=== PATIENT | male | born 1975 | race Caucasian/White ===

== ENCOUNTER 2019-05-11 21:51 | Emergency (ER) | payer MEDICARE ==
[~2019-05-11] VITALS: Ht 188 cm; Wt 111.1 kg
[2019-05-11] MEDS ORDERED: GABAPENTIN300 MG ORAL (22:18)
[2019-05-11] MEDS ORDERED: SEROQUEL100 MG ORAL (22:18)
[2019-05-11 22:20] VITALS: BP 116/79
--- NOTE | 2019-05-11 22:20 | NUR ---
ED Nurse Note: pt walked in c/o cough and headache for 2 days. noted intermittent dry cough, no sx resp distress, Resp even and unlabored on RA, will cont monitor.
--- NOTE | 2019-05-11 22:46 | Emergency Room Report ---
History of Present Illness General Chief Complaint: Upper Respiratory Illness Source: Patient Present Illness HPI Patient presents with complaints of cough and congestion over the past several days complains of increased phlegm production Patient also has history of smoking Denies any chest pain denies any vomiting denies any neck pain or photophobia Denies any recent travel Patient has had increased yellow production with phlegm Presents for further eval Allergies: Coded Allergies: No Known Allergies (Verified Allergy, Unknown, 12/30/10) Patient History Past Medical History: see triage record Reviewed Nursing Documentation: PMH: Agreed; PSxH: Agreed Nursing Documentation-PMH Past Medical History: No Stated History Review of Systems All Other Systems: negative except mentioned in HPI Physical Exam Vital Signs Date Time Temp Pulse Resp B/P (MAP) Pulse Ox O2 Delivery O2 Flow Rate FiO2 05/11/19 22:14 98.6 98 14 116/79 (91) 99 Room Air Sp02 EP Interpretation: reviewed, normal General Appearance: well appearing, no apparent distress Head: normocephalic, atraumatic Eyes: bilateral eye PERRL, bilateral eye EOMI ENT: hearing grossly normal, normal pharynx, TMs + canals normal, uvula midline Neck: full range of motion, supple, no meningismus, no bony tend Respiratory: no rhonchi, no respiratory distress, no retraction, no accessory muscle use, crackles - Bilaterally Cardiovascular #1: normal peripheral pulses, regular rate, rhythm, no edema, no gallop, no JVD, no murmur Gastrointestinal: normal bowel sounds, non tender, soft, no mass, no organomegaly, non-distended, no guarding, no hernia, no pulsatile mass, no rebound Genitourinary: no CVA tenderness Musculoskeletal: normal inspection Neurologic: oriented x3, responsive, cultural centre manager III-XII nml as tested, motor strength/ tone normal, sensory intact Psychiatric: mood/affect normal Skin: no rash Lymphatic: normal inspection, no adenopathy Medical Decision Making Diagnostic Impression: Primary Impression: Pneumonia ER Course Multiple differentials including but not limited to infectious, reactive, cardiac, cardiopulmonary disease entertained x-ray imaging does not show any obvious acute pathology Given the patient's clinical symptoms and presentation Community-acquired pneumonia is diagnosed and patient stable for close outpatient Trial Chest X-Ray Diagnostic Results Chest X-Ray Diagnostic Results : Chest X-Ray Ordered: Yes # of Views/Limited/Complete: 1 View Indication: Shortness of Breath EP Interpretation: Yes Interpretation: no consolidation, no effusion, no pneumothorax Impression: No acute disease Electronically Signed by: Julianna Crawford DO Last Vital Signs Date Time Temp Pulse Resp B/P (MAP) Pulse Ox O2 Delivery O2 Flow Rate FiO2 05/11/19 22:14 98.6 98 14 116/79 (91) 99 Room Air Disposition: HOME, SELF-CARE Condition: Improved Scripts Methylprednisolone (Methylprednisolone*) 4MG Dspk 4 MG ORAL DIRECTED for 6 Days, #21 EA 0 Refills Day 1: Two tablets before breakfast, one after lunch, one after dinner, and two at bedtime. If started late in the day, take all six tablets at once or divide into two or three doses, unless otherwise directed by prescriber. Day 2: One tablet before breakfast, one after lunch, one after dinner, and two at bedtime Day 3: One tablet before breakfast, one after lunch, one after dinner, and one at bedtime Day 4: One tablet before breakfast, one after lunch, and one at bedtime Day 5: One tablet before breakfast and one at bedtime Day 6: One tablet before breakfast Prov: Julianna Crawford DO 05/11/19 Albuterol Sulfate* (ALBUTEROL SULFATE MDI*) 8.5 Gm Hfa.aer.ad 2 PUFF INH Q6H, #1 EA 0 Refills Prov: Julianna Crawford DO 05/11/19 Azithromycin* (ZITHROMAX*) 250 Mg Tablet 250 MG ORAL DAILY, #6 TAB 0 Refills Take two tables once daily for 1 day, then one tablet once daily for 4 days. Prov: Julianna Crawford DO 05/11/19 Additional Instructions: Patient is provided with the discharge instructions notified to follow up with primary doctor in the next 2-3 days otherwise return to the er with any worsening symptoms. Please note that this report is being documented using [employer] technology. This can lead to erroneous entry secondary to incorrect interpretation by the dictating instrument. Julianna Crawford DO May 11, 2019 22:46
[2019-05-11] MEDS ORDERED: MEDROL DOSEPAK4 MG ORAL (23:30)
[2019-05-11] MEDS ORDERED: ALBUTEROL SULF8.5 GM INH (23:30)
[2019-05-11] MEDS ORDERED: ZITHROMAX250 MG ORAL (23:30)
[2019-05-11 23:51] VITALS: BP 112/70
--- NOTE | 2019-05-11 23:51 | NUR ---
ED Nurse Note: PT CLEARED TO BE D/C PER ERMD, PT DISCHARGE AND AFTERCARE INSTRUCTION PROVIDED W/ PRESCRIPTION, PT EDUCATION DONE VIA DISCUSSION AND HANDOUT, PT ADVISED TO FOLLOW UP WITH PCP OR RETURN TO ED IF CHANGES IN CONDITION, VSS, AMBULATORY W/ STEADY GAIT, LEFT W/ ALL BELONGINGS.
--- NOTE | 2019-05-12 12:24 | Diagnostic Imaging Report ---
Indication: Cough Technique: Single AP view of the chest. Comparison: Chest radiograph dated 12/30/2010 Findings: The cardiomediastinal silhouette is within normal limits. No airspace consolidation, pneumothorax or pleural effusion. Left basilar subsegmental atelectasis. Osseous structures demonstrate no acute abnormality. IMPRESSION: No acute cardiopulmonary process.
== END 2019-05-11 23:52 | disposition home or self-care (01) ==
LOC: EMR 22:30
DX: J18.9 Pneumonia, unspecified organism (principal)
CPT/HCPCS: 71045; 99283